=== PATIENT | female | born 1965 | race Caucasian/White ===

== ENCOUNTER 2018-01-26 10:00 | Emergency (ER) | payer BC, OTHER ==
[~2018-01-26] VITALS: Ht 170.2 cm; Wt 104.3 kg
--- NOTE | ~2018-01-26 | EKG ---
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 STILES : 1965 Requested By: Ed Márquez Order Number: [id number] MD: Jourdan Manley Measurements Intervals [place] Rate: 79 P: 21 NV: 131 QRS: 17 QRSD: 91 T: -42 QT: 376 QTc: 432 Interpretive Statements Sinus rhythm Abnormal R-wave progression, late transition LVH by voltage Nonspecific T abnormalities, lateral leads Compared to ECG 11/18/2015 13:37:14 Left ventricular hypertrophy now present T-wave abnormality now present Electronically Signed On 01-26-2018 15:07:40 CDT by Jourdan Manley [email or web address] <ELECTRONICALLY SIGNED> By: Jourdan Manley MD 01/26/18 1507 1027 1027 Jourdan Manley MD /EPI
[~2018-01-26 10:00] MED LIST: ADDERALL 30 MG30 MG PO; FISH OIL 1,001000 M2 PO; LEXAPRO20 MG PO; PREVACID30 M2 PO; PROAIR HFA8.5 GM INH; TUSSIONEX PENN473 ML PO; UNICOMPLEX M TA1 TA1 PO; XANAX 0.5 MG0.5 MG PO
[2018-01-26 11:17] LABS: ABSOLUTE NEUTROPHILS 6.7 thou/uL (1.4-8.2); BASOPHILS 0.6 % (0.0-2.0); EOSINOPHILS 2.1 % (0.0-3.0); HEMATOCRIT 42.8 % (37.0-47.0); HEMOGLOBIN 15.1 gm/dL (12.0-15.0); LYMPHOCYTES 32.6 % (24.0-44.0); MCH 34.1 pg (26.0-34.0); MCHC 35.4 g/dL (28.0-37.0); MCV 96.3 fL (80.0-100.0); MONOCYTES 9.1 % (1.0-8.0); PLATELET COUNT 245 thou/uL (150-400); POLYS 55.6 % (36.0-66.0); RBC 4.44 mil/uL (4.20-5.00); RDW 13.9 % (10.5-14.5)
[2018-01-26 11:20] LABS: ANION GAP 8 mmol/L (7-16); BUN 14 mg/dL (7-18); CHLORIDE 102 mmol/L (98-107); CO2 25 mmol/L (21-32); GLUCOSE 112 mg/dL (74-106); POTASSIUM 3.4 mmol/L (3.5-5.1); SODIUM 135 mmol/L (136-145)
[2018-01-26 11:29] LABS: TROPONIN-I <0.06 ng/mL (<0.06)
[2018-01-26] MEDS ORDERED: LOPRESSOR25 PO (13:07)
[2018-01-26 13:16] VITALS: BP 166/99
== END 2018-01-26 13:19 | disposition home or self-care (01) ==
LOC: ER 10:00
PROVIDERS: Emergency Medicine
DX: F17.210 Nicotine dependence, cigarettes, uncomplicated (principal); R07.89 Other chest pain; F41.9 Anxiety disorder, unspecified; I10 Essential (primary) hypertension; F41.0 Panic disorder [episodic paroxysmal anxiety]; F32.9 Major depressive disorder, single episode, unspecified; R20.0 Anesthesia of skin; R20.2 Paresthesia of skin; R53.1 Weakness

== ENCOUNTER 2018-10-09 08:44 | Inpatient (IN) | payer BC, OTHER ==
[~2018-10-09] VITALS: Ht 172.7 cm; Wt 99.8 kg
[2018-10-09] VITALS (7 sets, daily range): BP systolic 142–163; BP diastolic 90–107
[~2018-10-09 08:44] MED LIST changes: +LOPRESSOR25 PO
[2018-10-09] MEDS ORDERED: BENTYL 10 MG CA10 M1 PO (09:08)
[2018-10-09] MEDS ORDERED: OMEPRAZOLE 20 M20 M1 PO (09:08)
[2018-10-09 09:49] LABS: ABSOLUTE NEUTROPHILS 5.9 thou/uL (1.4-8.2); BASOPHILS 0.8 % (0.0-2.0); EOSINOPHILS 3.2 % (0.0-3.0); HEMATOCRIT 39.5 % (37.0-47.0); HEMOGLOBIN 13.5 gm/dL (12.0-15.0); LYMPHOCYTES 26.7 % (24.0-44.0); MCH 33.8 pg (26.0-34.0); MCHC 34.3 g/dL (28.0-37.0); MCV 98.5 fL (80.0-100.0); MONOCYTES 6.3 % (1.0-8.0); PLATELET COUNT 212 thou/uL (150-400); RBC 4.01 mil/uL (4.20-5.00); RDW 14.4 % (10.5-14.5); WBC 9.3 thou/uL (4.0-11.0)
[2018-10-09 09:55] LABS: ANION GAP 10 mmol/L (7-16); BUN 12 mg/dL (7-18); CALCIUM 9.1 mg/dL (8.5-10.1); CHLORIDE 105 mmol/L (98-107); CO2 27 mmol/L (21-32); CREATININE 0.8 mg/dL (0.6-1.0); GLUCOSE 107 mg/dL (74-106); POTASSIUM 3.7 mmol/L (3.5-5.1); SODIUM 142 mmol/L (136-145)
[2018-10-09 10:05] LABS: ALBUMIN 3.3 g/dL (3.4-5.0); SGOT 37 U/L (15-37); SGPT 48 U/L (30-65); TOTAL BILIRUBIN 0.7 mg/dL (<0.1-1.0); TOTAL PROTEIN 7.1 g/dL (6.4-8.2); TROPONIN-I <0.06 ng/mL (<0.06)
--- NOTE | 2018-10-09 12:45 | NUR ---
PT ORIENTED TO ROOM AND UNIT. BED LOW AND LOCKED, SIDE RAILS UPX 3,CALL LIGHT IN REACH. TELE APPLIED, WILL CONTINUE TO ASSESS.
[2018-10-09] MEDS ORDERED: TOPROL XL25 MG PO (12:49)
[2018-10-09 14:22] LABS: AMP/METHAMP Negative (Negative); BARBITURATES Negative (Negative); BENZODIAZEPINES POSITIVE (Negative); COCAINE Negative (Negative); METHADONE Negative (Negative); OPIATES Negative (Negative); PCP Negative (Negative)
--- NOTE | 2018-10-09 15:00 | EKG ---
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 : 1965 Requested By: Selin Crews Order Number: [id number] MD: Cy Cedeno Measurements Intervals [place] Rate: 100 P: 71 MI: 134 QRS: 83 QRSD: 154 T: 70 QT: 420 QTc: 542 Interpretive Statements Sinus tachycardia Biatrial enlargement Left bundle branch block pattern Compared to ECG 01/26/2018 10:27:16 Atrial abnormality now present Left bundle branch block pattern is present Electronically Signed On 10-09-2018 15:00:43 CDT by Cy Cedeno [email or web address] ��������������������������������������������� <ELECTRONICALLY SIGNED> ���������������������������������������� By: Cy Cedeno MD ��������������������������������������������� 10/09/18 1500 0849 Cy Cedeno MD /SID
--- NOTE | 2018-10-09 16:31 | 2DMMODE ---
[facility] [address] [place] [address] 2 D/M-MODE ECHOCARDIOGRAM Name: JASON MASON Room #: 211-P [facility] IN [facility]#: [id number] ������������� Admission: 10/09/18 ������������� Attend Phys: Tim Dyer MD Discharge: ��� ������������� ��� Date of : 69 Date of Service: 10/09/18 1631 �� Report #: [id number] �������� ��������������������������������������������[id number] THIS REPORT FOR: //name// APPROVED REPORT Study performed: 10/09/2018 15:20:00 EXAM: Comprehensive 2D, Doppler, and color-flow Echocardiogram Patient Location: Bedside Room #: [facility] Status: stat BSA: 2.13 HR: 105 bpm BP: 150/100 mmHg Rhythm: LBBB Other Information Study Quality: Adequate Indications Congestive Heart Failure Tobacco abuse 2D Dimensions RVDd: 37.64 mm IVSd: 14.54 (7-11mm) LVOT Diam: 22.05 (18-24mm) LVDd: 50.27 mm PWd: 13.53 (7-11mm) Ascending Ao: 31.36 (22-36mm) LVDs: 47.47 (25-40mm) Aortic Root: 29.90 mm IVC: 23.00 mm Volumes Left Atrial Volume (Systole) Single Plane 4CH: 87.29 mL Single Plane 2CH: 89.60 mL LA ESV Index: 44.00 mL/m2 Aortic Valve AoV Peak Prabhakar.: 0.94 m/s AO Peak Gr.: 3.52 mmHg LVOT Max P.65 mmHg LVOT Max V: 0.64 m/s TREMAINE Vmax: 2.62 cm2 Mitral Valve MV Decel. Time: 174.14 ms MV E Max Prabhakar.: 0.93 m/s [facility] [address] [place] [address] 2 D/M-MODE ECHOCARDIOGRAM Name: JASON MASON Room #: 211-[facility].#: [id number] ������������� Admission: 10/09/18 ������������� Attend Phys: Tim Dyer MD Discharge: ��� ������������� ��� Date of : 69 Date of Service: 10/09/18 1631 �� Report #: [id number] �������� ��������������������������������������������[id number] IVRT: 110.73 ms Pulmonary Valve PV Peak Prabhakar.: 0.52 m/s PV Peak Gr.: 1.09 mmHg Tricuspid Valve TR Peak Prabhakar.: 3.25 m/s RAP Estimate: 10.00 mmHg TR Peak Gr.: 42.15 mmHg PA Pressure: 52.00 mmHg Left Ventricle The left ventricle is normal size. Mild concentric left ventricular hypertrophy. Left ventricular ejection fraction is severely decreased. LVEF is 20%. This study is not technically sufficient to allow evaluation of the LV diastolic function. Right Ventricle The right ventricle is normal size. Right ventricle is mildly hypokinetic. Atria Left atrium is moderately dilated. Right atrium is borderline dilated. Aortic Valve The aortic valve is normal in structure. Trace aortic regurgitation. There is no aortic valvular stenosis. Mitral Valve The mitral valve is normal in structure. Moderate mitral regurgitation. No evidence of mitral valve stenosis. Tricuspid Valve The tricuspid valve is normal in structure. Mild tricuspid regurgitation. Pulmonic Valve The pulmonary valve is normal in structure. Trace pulmonic regurgitation. Great Vessels The aortic root is normal in size. IVC is dilated and collapses >50% with inspiration. Pericardium There is no pericardial effusion. [facility] [address] [place] [address] 2 D/M-MODE ECHOCARDIOGRAM Name: JASON MASON Room #: 211-P [facility] IN M.R.#: [id number] ������������� Admission: 10/09/18 ������������� Attend Phys: Tim Dyer MD Discharge: ��� ������������� ��� Date of : 69 Date of Service: 10/09/181630 �� Report #: [id number] �������� ��������������������������������������������[id number] <Conclusion> The left ventricle is normal size. Mild concentric left ventricular hypertrophy. Left ventricular ejection fraction is severely decreased. The right ventricle is normal size. Left atrium is moderately dilated. Trace aortic regurgitation. Moderate mitral regurgitation. Mild tricuspid regurgitation. ��������������������������������������������� <ELECTRONICALLY SIGNED> ���������������������������������������� By: Cy Cedeno MD ��������������������������������������������� 10/09/181630 30 1631 Cy Cedeno MD /INF
--- NOTE | 2018-10-09 17:07 | NUR ---
ASSESS PT WITH DR. GANN AND INSTRUCTED TO TRANSFER PT TO ICU AND PLACE PT ON 2L NC.INFORM VIJI WELCH.
--- NOTE | 2018-10-09 17:23 | NUR ---
REPORT GIVEN TO DEYVI IN THE ICU WILL TRANSFER.
--- NOTE | 2018-10-09 20:11 | NUR ---
TRANSFERRED FROM CCU AT 1735. PT TEARFUL. REPORTS THAT SHE HAS HAD COUGH, SHORTNESS OF BREATH, CHEST PAIN AND SORENESS, FALLING ASLEEP RANDOMLY, AND NOT FEELING WELL X2 WEEKS. PT'S SON AT BEDSIDE THIS EVENING. UP TO COMMODE WITH STEADY GAIT/STANDBY ASSISTANCE. EDUCATED ABOUT FLUID RESTRICTION. REPORT GIVEN TO TEXTILE DESIGNER RN.
[2018-10-10] VITALS (13 sets, daily range): BP systolic 117–169; BP diastolic 80–110
[2018-10-10 05:28] LABS: HEMATOCRIT 43.7 % (37.0-47.0); HEMOGLOBIN 14.9 gm/dL (12.0-15.0); MCH 33.9 pg (26.0-34.0); MCHC 34.1 g/dL (28.0-37.0); MCV 99.3 fL (80.0-100.0); RBC 4.4 mil/uL (4.20-5.00); RDW 14.5 % (10.5-14.5); WBC 9.5 thou/uL (4.0-11.0)
[2018-10-10 05:55] LABS: CALCIUM 8.9 mg/dL (8.5-10.1); CREATININE 0.9 mg/dL (0.6-1.0); POTASSIUM 3.1 mmol/L (3.5-5.1)
--- NOTE | 2018-10-10 07:00 | NUR ---
No event tonight. Pt is able to rest well. Less Shortness of breath this am per her report. BP remains elevated. She was given hydralazine IV once with this am with some improvement. Report hand off to am shift RN.
--- NOTE | 2018-10-10 17:48 | NUR ---
PT TRANSFERED FROM ICU. REPORT RECEIVED FROM ANA WELCH. PT ALERT AND ORIENTED. VSS. WILL CONTINUE TO MONITOR.
--- NOTE | 2018-10-11 03:35 | NUR ---
ASSESSMENT CHARTED. C/O LOWER BACK PAIN. ASKING GOOD QUESTIONS ABOUT HER DIAGNOSIS AND TREATMENT OPTIONS. PLAN OF CARE IS TO HAVE HEART CATH ON FRIDAY, CONTINUE DIURESING.
[2018-10-11 08:04] VITALS: BP 118/81
[2018-10-11 09:19] LABS: CALCIUM 8.9 mg/dL (8.5-10.1); CREATININE 1.1 mg/dL (0.6-1.0); POTASSIUM 3.3 mmol/L (3.5-5.1)
[2018-10-11 11:18] VITALS: BP 114/61
--- NOTE | 2018-10-11 15:07 | NUR ---
ASSESSMENT CHARTED. PT ALERT AND ORIENTED. VSS. HAS BEEN SLEEPING ON AND OFF THIS SHIFT. REPORT HAVING BACK PAIN. FEELS BETTER WITH POSITIONING. NO CONCERNS AT THIS TIME. WILL CONTINUE TO MONITOR.
[2018-10-11 16:32] VITALS: BP 110/72
[2018-10-11 19:35] VITALS: BP 102/58
[2018-10-12] VITALS (9 sets, daily range): BP systolic 107–131; BP diastolic 44–77
--- NOTE | 2018-10-12 04:12 | NUR ---
PT ALERT AND ORIENTED. C/O HEADACHE X1. USE TYLENOL NO FURTHER C/O. VITALS STABLE. PT NPO SINCE MIDNIGHT. CARDIAC CATH IN AM. FAMILY PRESENT AT BEDSIDE MOST OF THE EVENING. OTHER ASSESSMENTS DOCUMENTED. WILL CONTINUE TO FOLLOW POC.
[2018-10-12 04:26] LABS: HEMATOCRIT 44.1 % (37.0-47.0); HEMOGLOBIN 14.9 gm/dL (12.0-15.0); MCH 33.8 pg (26.0-34.0); MCHC 33.7 g/dL (28.0-37.0); MCV 100.1 fL (80.0-100.0); RBC 4.41 mil/uL (4.20-5.00); RDW 14.7 % (10.5-14.5); WBC 8.8 thou/uL (4.0-11.0)
[2018-10-12 04:30] LABS: CALCIUM 9.2 mg/dL (8.5-10.1); CREATININE 0.9 mg/dL (0.6-1.0); POTASSIUM 3.4 mmol/L (3.5-5.1)
[2018-10-12 14:31] LABS: BE(vivo) 4.1 mmol/L (-2 to +3); HCO3 29.2 mmol/L (22.0-26.0); PCO2 VENOUS 45.1 mmHg (41.0-51.0); PO2 VENOUS 31.5 mmHg (35.0-45.0)
[2018-10-12 14:33] LABS: HCO3 28.2 mmol/L (22.0-26.0); PO2 64.3 mmHg (80.0-100.0); sO2 94.3 % (92.0-98.0)
--- NOTE | 2018-10-12 19:30 | NUR ---
PT ALERT AND ORIENTED. HAD CARDIAC CATH THIS AFTERNOON. VSS. DENIED HAVING PAIN. NO HEMATOMA NOTED. STILL ON BEDREST. WILL CONTINUE TO MONITOR.
[2018-10-13 01:32] VITALS: BP 112/59
--- NOTE | 2018-10-13 02:51 | NUR ---
care assumed at 1900 patient was in bed asleep. patient was flat on bed rest until 1999. patient was able to ambulate to the bathroom at around 2100 and eat dinner. patient denied pain or discomfort. patient is on continous oxygen no shortness of air or distress noted this shift. right groin area has transparent dressing c/d/i. 2+ pulses on ble. bruise noted on the right upper arm. fall precaution in place.patient in bed asleep at this time breathing regular and unlaboured.
[2018-10-13 04:54] VITALS: BP 124/65
[2018-10-13 04:57] LABS: HEMATOCRIT 42.9 % (37.0-47.0); HEMOGLOBIN 14.6 gm/dL (12.0-15.0); MCH 33.8 pg (26.0-34.0); MCV 99.6 fL (80.0-100.0); RBC 4.31 mil/uL (4.20-5.00); RDW 14.5 % (10.5-14.5); WBC 8.4 thou/uL (4.0-11.0)
[2018-10-13 05:10] LABS: CALCIUM 8.9 mg/dL (8.5-10.1); CREATININE 0.8 mg/dL (0.6-1.0); POTASSIUM 3.9 mmol/L (3.5-5.1)
[2018-10-13] MEDS ORDERED: FUROSEMIDE 40 M40 M1 PO (08:55)
[2018-10-13] MEDS ORDERED: COREG25 MG PO (08:55)
[2018-10-13] MEDS ORDERED: POTASSIUM20 PO (08:55)
[2018-10-13] MEDS ORDERED: LOSARTAN POTASS50 MG PO (08:55)
[2018-10-13 09:58] VITALS: BP 133/89
--- NOTE | 2018-10-13 10:40 | NUR ---
ASSESSMENT DOCUMENTED. PT ALERT AND ORIENTED. VSS. DENIED HAVING PAIN OR DISCOMFORT. RIGHT GROIN INCISION. C/D/.I. ORDERS GIVEN TO DISCHARGE PT TO HOME. DICSHARGE INSTRUCTIONS GIVEN TO PT. PT VERBERLIZE UNDERSTANDING.
--- NOTE | 2018-10-13 16:57 | CATHLAB ---
[facility] [place] [address] INVASIVE PROCEDURE REPORT Name: JASON MASON Room #: 209-P [facility] IN [facility]#: [id number] ������������� Admission: 10/09/18 ������������� Attend Phys: Tim Dyer MD Discharge: ��� 10/13/18 ������������� ��� Date of : 69 Date of Service: 10/13/18 1657 �� Report #: [id number] �������� ��������������������������������������������[id number] THIS REPORT FOR: //name// APPROVED REPORT Study performed: 10/12/2018 13:56:48 Patient Details Patient Status: In-Patient Room #: The patient is a 53 year-old female Event Personnel Cy Cedeno Mandarin Speaking Nanny, Earl Moreau RN RN, Cecy Loya RN RN, Jefferson Pelletier RTR Scrub, Kenyetta Burnette RTR, CUSTODIAL AIDE Monitor, Terra Davalos Monitor Procedures Performed Art Access - R femoral artery* Jhonatan Access - R femoral vein Right and Left Heart Cath w/or w/o Coronarie 1267344 [facility] 75851 Initial Mod Sed Same Phys/QHP Gr5y 712451 34594 Mod Sed Same Phys/QHP Ea 356296 Hemostasis with Manual pressure Indication CHF Current Status: No , Dyspnea, Cardiomyopathy Risk Factors Hypercholesterolemia, Hypertension, Tobacco History () Procedure Narrative The Right Groin^ was infiltrated with 1% Lidocaine subcutaneous anesthesia. A PINNACLE 4FR Sheath #[id number] sheath was inserted into the RFA^. Coronary angiography was performed using coronary diagnostic catheters. The right coronary system was accessed and visualized with a JR4 catheter. The left coronary system was accessed and visualized with a JL4 catheter. Hemostasis was obtained with manual pressure following sheath removal without any complications. There was no hematoma. Intraoperative Conscious Sedation Sedation start time: 1404 Case end Time: 1455 Fentanyl 5075 mcg Versed 1 mg Fluoro Time: 2.70 minutes Dose: DAP 5790.00 cGycm2 902 mGy [place] [address] [place] [address] INVASIVE PROCEDURE REPORT Name: JASON MASON Room #: 209-P [facility] IN [facility]#: [id number] ������������� Admission: 10/09/18 ������������� Attend Phys: Tim Dyer MD Discharge: ��� 10/13/18 ������������� ��� Date of : 69 Date of Service: 10/13/18 1657 �� Report #: [id number] �������� ��������������������������������������������[id number] Contrast Type and Amount: Omnipaque 60 ml Coronary Angiography The patient's coronary anatomy is right dominant. Diagnostic Cath Left Main This is a patent vessel, with no flow-limiting lesions. LAD There is mild disease in the proximal and mid segments, 20%. Diagonal 1 This is a patent vessel, with no flow-limiting lesions. Diagonal 2 This is a patent vessel, with no flow-limiting lesions. Circumflex This is a patent vessel, with no flow-limiting lesions. OM1 This is a patent vessel, with no flow-limiting lesions. OM2 This is a patent vessel, with no flow-limiting lesions. Right Coronary This is a dominant vessel, patent with no flow-limiting lesions. R PDA This is a patent vessel, with no flow-limiting lesions. RPLV This is a patent vessel, with no flow-limiting lesions. Left Ventriculography Left Ventriculography was not performed. Ejection Fraction was 25-30% based off patient's Echocardiogram. An LVEDP was measured and there is no gradient across the outflow tract. Hemodynamics The right atrial mean pressure is 6 mmHg. The right ventricular pressure is 26/5 mmHg. The pulmonary artery pressure is 29/18 mmHg with a mean of 22 mmHg. The mean pulmonary capillary wedge pressure is 11 mmHg. The aortic pressure is 111/54 mmHg with a mean of 33 mmHg. The left ventricular pressure is 120/6 mmHg with a mean of mmHg. PaO2 saturation is 61.70 %. Arterial saturation is 94.30 %. The cardiac output using the Luisana method is 2.84 L/min. The cardiac index using the Luisana method is 1.46 L/min/m2. Conclusion 1. Mild coronary artery disease in the LAD. 2. Severe nonischemic cardiomyopathy. [facility] [address] [place] [address] INVASIVE PROCEDURE REPORT Name: JASON MASON Room #: 209-P [facility] IN .R.#: [id number] ������������� Admission: 10/09/18 ������������� Attend Phys: Tim Dyer MD Discharge: ��� 10/13/18 ������������� ��� Date of : 69 Date of Service: 10/13/18 1657 �� Report #: [id number] �������� ��������������������������������������������[id number] 3. Right-sided hemodynamics as recorded. 4. Recommend guideline directed medical therapy. ��������������������������������������������� <ELECTRONICALLY SIGNED> ���������������������������������������� By: Cy Cedeno MD ��������������������������������������������� 10/13/181656 56 56 Cy Cedeno MD /INF
== END 2018-10-13 10:44 | disposition home or self-care (01) | DRG 286 ==
LOC: ER 08:44 → EROBS 11:45 → 2N 11:45 → ICU 17:55 → 2N 10-10 13:09 → ENTRNSPT 10-13 10:36 → EDTRNSPTSTS 10-13 10:39 → 2N 10-13 10:44
PROVIDERS: Internal Medicine Cardiovascular Disease; Student in an Organized Health Care Education/Training Program; ADMIT Hospitalist
DX: I11.0 Hypertensive heart disease with heart failure (principal); J96.01 Acute respiratory failure with hypoxia; I50.23 Acute on chronic systolic (congestive) heart failure; F32.9 Major depressive disorder, single episode, unspecified; F41.9 Anxiety disorder, unspecified; I50.9 Heart failure, unspecified; K21.9 Gastro-esophageal reflux disease without esophagitis; I25.10 Atherosclerotic heart disease of native coronary artery without angina pectoris; I42.9 Cardiomyopathy, unspecified; F17.210 Nicotine dependence, cigarettes, uncomplicated; I44.7 Left bundle-branch block, unspecified; E87.6 Hypokalemia; Z90.49 Acquired absence of other specified parts of digestive tract; Z98.891 History of uterine scar from previous surgery; Z90.721 Acquired absence of ovaries, unilateral; Z90.5 Acquired absence of kidney; Z71.6 Tobacco abuse counseling
CPT/HCPCS: 10078; 10081

== ENCOUNTER → 2018-10-22 | Outpatient (CLI) | payer BC, OTHER ==
[~2018-10-22] MED LIST changes: +BENTYL 10 MG CA10 M1 PO; +COREG25 MG PO; +FUROSEMIDE 40 M40 M1 PO; +LOSARTAN POTASS50 MG PO; +OMEPRAZOLE 20 M20 M1 PO; +POTASSIUM20 PO; +TOPROL XL25 MG PO
== END ==
LOC: ULTRA 12:18
DX: I73.9 Peripheral vascular disease, unspecified (principal); I50.22 Chronic systolic (congestive) heart failure; I42.8 Other cardiomyopathies; M79.604 Pain in right leg; M79.605 Pain in left leg

== ENCOUNTER → 2019-01-11 | Outpatient (CLI) | payer BC, OTHER ==
--- NOTE | 2019-01-11 10:21 | 2DMMODE ---
[facility] [place] [address] 2 D/M-MODE ECHOCARDIOGRAM Name: JASON MASON Room #: [facility]#: [id number] ������������� Admission: 01/11/19 ������������� Attend Phys: Cy Cedeno MD Discharge: ��� ������������� ��� Date of : 69 Date of Service: 01/11/19 1021 �� Report #: [id number] �������� ��������������������������������������������[id number] THIS REPORT FOR: //name// APPROVED REPORT Study performed: 01/11/2019 09:28:53 EXAM: Comprehensive 2D, Doppler, and color-flow Echocardiogram Patient Location: Echo lab Status: routine BSA: 2.13 HR: 66 bpm BP: 158/95 mmHg Rhythm: NSR Other Information Study Quality: Adequate Indications Congestive Heart Failure Tobacco abuse 2D Dimensions RVDd: 30.39 mm IVSd: 13.01 (7-11mm) LVOT Diam: 22.11 (18-24mm) LVDd: 47.16 mm PWd: 13.17 (7-11mm) Ascending Ao: 32.10 (22-36mm) LVDs: 37.26 (25-40mm) Aortic Root: 34.24 mm IVC: 15.00 mm Volumes Left Atrial Volume (Systole) Single Plane 4CH: 68.95 mL Single Plane 2CH: 68.68 mL LA ESV Index: 34.00 mL/m2 Aortic Valve AoV Peak Prabhakar.: 1.38 m/s AO Peak Gr.: 7.65 mmHg LVOT Max P.36 mmHg LVOT Max V: 0.92 m/s TREMAINE Vmax: 2.54 cm2 Mitral Valve E/A Ratio: 0.6 MV Decel. Time: 332.02 ms [facility] [address] [address] 2 D/M-MODE ECHOCARDIOGRAM Name: MARLONJASON Room #: [facility]#: [id number] ������������� Admission: 01/11/19 ������������� Attend Phys: Cy Cedeno MD Discharge: ��� ������������� ��� Date of : 69 Date of Service: 01/11/19 1021 �� Report #: [id number] �������� ��������������������������������������������[id number] MV E Max Prabhakar.: 0.43 m/s MV A Prabhakar.: 0.67 m/s MV PHT: 96.28 ms IVRT: 184.54 ms Pulmonary Valve PV Peak Prabhakar.: 0.76 m/s PV Peak Gr.: 2.33 mmHg Pulmonary Vein P Vein S: 0.52 m/s P Vein A: 0.29 m/s P Vein D: 0.37 m/s P Vein A Dur.: 60.0 msec P Vein S/D Ratio: 1.41 Tricuspid Valve RAP Estimate: 5.00 mmHg Left Ventricle The left ventricle is normal size. Mild concentric left ventricular hypertrophy. Left ventricular systolic function is normal. LVEF is 55%. Mild diastolic dysfunction is present (impaired relaxation pattern). Right Ventricle The right ventricle is normal size. The right ventricular systolic function is normal. Atria Left atrium is mildly dilated. The right atrium size is normal. Aortic Valve The aortic valve is normal in structure. Trace aortic regurgitation. There is no aortic valvular stenosis. Mitral Valve The mitral valve is normal in structure. Trace mitral regurgitation. No evidence of mitral valve stenosis. Tricuspid Valve The tricuspid valve is normal in structure. Trace tricuspid regurgitation. Unable to assess PA pressure. Pulmonic Valve The pulmonary valve is normal in structure. Trace pulmonic regurgitation. [facility] [place] [address] 2 D/M-MODE ECHOCARDIOGRAM Name: JASON MASON Room #: [facility]#: [id number] ������������� Admission: 01/11/19 ������������� Attend Phys: Cy Cedeno MD Discharge: ��� ������������� ��� Date of : 69 Date of Service: 01/11/19 1021 �� Report #: [id number] �������� ��������������������������������������������[id number] Great Vessels The aortic root is normal in size. IVC is normal in size and collapses >50% with inspiration. Pericardium There is no pericardial effusion. <Conclusion> The left ventricle is normal size. Mild concentric left ventricular hypertrophy. Left ventricular systolic function is normal. Mild diastolic dysfunction is present (impaired relaxation pattern). The right ventricle is normal size. Left atrium is mildly dilated. Trace aortic regurgitation. Trace mitral regurgitation. Trace tricuspid regurgitation. ��������������������������������������������� <ELECTRONICALLY SIGNED> ���������������������������������������� By: Cy Cedeno MD ��������������������������������������������� 09/1020 102 20 Cy Cedeno MD /STEVE
== END ==
LOC: CV 09:18
DX: I11.0 Hypertensive heart disease with heart failure (principal); I50.9 Heart failure, unspecified; F17.200 Nicotine dependence, unspecified, uncomplicated; F41.9 Anxiety disorder, unspecified

== ENCOUNTER 2020-06-12 10:31 | Emergency (ER) | payer BC, OTHER ==
[~2020-06-12] VITALS: Ht 170.2 cm; Wt 99.8 kg
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
[2020-06-12] MEDS ORDERED: NORVASC 2.5 MG2.5 M1 PO (10:41)
[2020-06-12 11:12] LABS: ABSOLUTE NEUTROPHILS 3.7 thou/uL (1.4-8.2); BASOPHILS 1.3 % (0.0-2.0); EOSINOPHILS 1.4 % (0.0-3.0); HEMATOCRIT 43.3 % (37.0-47.0); HEMOGLOBIN 14.8 gm/dL (12.0-15.0); LYMPHOCYTES 44.3 % (24.0-44.0); MCH 34.2 pg (26.0-34.0); MCHC 34.1 g/dL (28.0-37.0); MCV 100.4 fL (80.0-100.0); MONOCYTES 8.5 % (1.0-8.0); PLATELET COUNT 260 thou/uL (150-400); POLYS 44.5 % (36.0-66.0); RBC 4.31 mil/uL (4.20-5.00); RDW 14.1 % (10.5-14.5); WBC 8.3 thou/uL (4.0-11.0)
[2020-06-12 11:14] LABS: ANION GAP 12 mmol/L (7-16); BUN 12 mg/dL (7-18); CALCIUM 8.6 mg/dL (8.5-10.1); CHLORIDE 98 mmol/L (98-107); CO2 26 mmol/L (21-32); CREATININE 0.8 mg/dL (0.6-1.0); GLUCOSE 114 mg/dL (74-106); POTASSIUM 3.8 mmol/L (3.5-5.1); SODIUM 136 mmol/L (136-145)
[2020-06-12 11:25] LABS: ALBUMIN 3.5 g/dL (3.4-5.0); LIPASE 168 U/L (73-393); SGOT 47 U/L (15-37); SGPT 51 U/L (30-65); TOTAL BILIRUBIN 0.3 mg/dL (0.2-1.0); TOTAL PROTEIN 7.2 g/dL (6.4-8.2); TROPONIN-I <0.06 ng/mL (<0.06)
[2020-06-12 15:07] VITALS: BP 179/90
--- NOTE | 2020-06-13 06:47 | EKG ---
[place] [address] [facility] [place] [address] ELECTROCARDIOGRAM REPORT Name: MARLONJASON D Room #: [facility]#: [id number] Admission: 06/12/20 Attend Phys: Discharge: 06/12/20 Date of : 69 Report #: [id number] [facility] ED Test Date: 2020-06-12 Test Time: 10:38:01 Pat Name: JASON MASON Department: Room: Gender: F [employer]: NILESH : 1965 Requested By: Isaac Da Silva Order Number: [id number] MD: Octaviano Mckoy Measurements Intervals [place] Rate: 59 P: 63 [place]: 140 QRS: 49 QRSD: 93 T: 64 QT: 490 QTc: 486 Interpretive Statements Sinus rhythm Left atrial enlargement Probable left ventricular hypertrophy Borderline prolonged QT interval Compared to ECG 10/09/2018 08:49:40 Sinus tachycardia no longer present Left bundle-branch block no longer present Electronically Signed On 06-13-2020 6:47:46 ASSOCIATE PROFESSOR OF RADIOLOGY by Octaviano Mckoy [email or web address] <ELECTRONICALLY SIGNED> By: Octaviano Mckoy MD, [facility] 06/13/20 0647 [id number] Octaviano Mckoy MD, FACC /EPI
--- NOTE | 2020-06-13 08:18 | 2DMMODE ---
[facility] [place] [address] 2 D/M-MODE ECHOCARDIOGRAM Name: JASON MASON Andreia [id number] Admission: 06/12/20 Attend Phys: Discharge: 06/12/20 Date of : 69 Report #: [id number] THIS REPORT FOR: cc: FAM - No family physician/PCP FAM - No family physician/PCP Cy Cedeno MD ~ APPROVED REPORT Study performed: 06/12/2020 14:29:48 EXAM: Comprehensive 2D, Doppler, and color-flow Echocardiogram Patient Location: ER Room #: 6 Status: routine BSA: 2.11 HR: 65 bpm BP: 157/68 mmHg Rhythm: NSR Other Information Study Quality: Technically Difficult Technically limited study due to body habitus, inability to position patient. Indications Cardiomyopathy Chest Pain Hypertension/HDD 2D Dimensions RVDd: 34.30 mm IVSd: 11.32 (7-11mm) LVOT Diam: 20.75 (18-24mm) LVDd: 49.99 mm PWd: 10.25 (7-11mm) Ascending Ao: 32.65 (22-36mm) LVDs: 32.06 (25-40mm) Aortic Root: 30.01 mm Volumes Left Atrial Volume (Systole) Single Plane 4CH: 63.04 mL Single Plane 2CH: 48.15 mL LA ESV Index: 32.00 mL/m2 Aortic Valve AoV Peak Prabhakar.: 1.34 m/s [facility] [address] [place] [address] 2 D/M-MODE ECHOCARDIOGRAM Name: JASON MASON Andreia [id number] Admission: 06/12/20 Attend Phys: Discharge: 06/12/20 Date of : 69 Report #: [id number] AO Peak Gr.: 7.23 mmHg LVOT Max P.82 mmHg LVOT Max V: 0.98 m/s TREMAINE Vmax: 2.46 cm2 Mitral Valve E/A Ratio: 0.7 MV Decel. Time: 327.95 ms MV E Max Prabhakar.: 0.52 m/s MV A Prabhakar.: 0.75 m/s MV PHT: 95.10 ms IVRT: 138.41 ms Pulmonary Valve PV Peak Prabhakar.: 0.80 m/s PV Peak Gr.: 2.56 mmHg Pulmonary Vein P Vein S: 0.71 m/s P Vein A: 0.32 m/s P Vein D: 0.40 m/s P Vein A Dur.: 110.7 msec P Vein S/D Ratio: 1.77 Left Ventricle The left ventricle is normal size. There is normal LV segmental wall motion. There is normal left ventricular wall thickness. The left ventricular systolic function is normal. The left ventricular ejection fraction is within the normal range. LVEF is 55-60%. Grade I - abnormal relaxation pattern. Right Ventricle The right ventricle is normal size. The right ventricular systolic function is normal. Atria Left atrium is at the upper limits of normal. The right atrium size is normal. Aortic Valve The aortic valve is normal in structure. No aortic regurgitation is present. There is no aortic valvular stenosis. Mitral Valve The mitral valve is normal in structure. Trace mitral regurgitation. No evidence of mitral valve stenosis. Tricuspid Valve The tricuspid valve is normal in structure. There is trace tricuspid regurgitation. [facility] [place] [address] 2 D/M-MODE ECHOCARDIOGRAM Name: JASON MASON [facility] [id number] Admission: 06/12/20 Attend Phys: Discharge: 06/12/20 Date of : 69 Report #: [id number] Pulmonic Valve The pulmonary valve is normal in structure. There is no pulmonic valvular regurgitation. Great Vessels The aortic root is normal in size. IVC is not well visualized. Pericardium There is no pericardial effusion. <Conclusion> The left ventricle is normal size. There is normal left ventricular wall thickness. The left ventricular systolic function is normal. Grade I - abnormal relaxation pattern. The right ventricle is normal size. Left atrium is at the upper limits of normal. The aortic valve is normal in structure. Trace mitral regurgitation. <ELECTRONICALLY SIGNED> By: Cy Cedeno MD 06/12/20 1530 29 29 Cy Cedeno MD /STEVE
== END 2020-06-12 15:22 | disposition still patient (30) ==
LOC: ER 10:31
PROVIDERS: Emergency Medicine
DX: R07.9 Chest pain, unspecified (principal); I11.0 Hypertensive heart disease with heart failure; I50.9 Heart failure, unspecified; F17.210 Nicotine dependence, cigarettes, uncomplicated; Z79.899 Other long term (current) drug therapy; Z20.828 Contact with and (suspected) exposure to other viral communicable diseases

== ENCOUNTER → 2021-06-04 | Outpatient (CLI) | payer BC, OTHER ==
[~2021-06-04] MED LIST changes: +NORVASC 2.5 MG2.5 M1 PO
== END ==
LOC: SJCVCIMAG 08:39
PROVIDERS: ATTEND Internal Medicine Cardiovascular Disease
DX: I08.1 Rheumatic disorders of both mitral and tricuspid valves (principal); I25.10 Atherosclerotic heart disease of native coronary artery without angina pectoris; I10 Essential (primary) hypertension; I42.9 Cardiomyopathy, unspecified